=== PATIENT | female | born 1935 | race Caucasian/White ===

== ENCOUNTER 2017-06-03 15:06 | Day surgery (SDC) | payer MEDICARE, SELFPAY ==
[2017-06-03 15:16] VITALS: BP 141/69; PULSE 67; RESP 18; TEMP 36.4; O2SAT 97
[2017-06-03 15:33] VITALS: BP 145/73; PULSE 75; RESP 20
[2017-06-03 15:35] VITALS: BP 133/91; PULSE 71; RESP 20; O2SAT 97
--- NOTE | 2017-06-03 15:42 | HMH.PMPROC ---
- Procedure Date: 06/03/17 Time: 15:42 Anesthesiologist:: Chalo Simms CRNA Complications:: None Pre-procedure Diagnosis:: Degenerative disc disease lumbar spine multiple levels. Lumbar postlaminectomy syndrome Post-procedure Diagnosis:: Same Indications for Procedure:: Very pleasant 82-year-old white female that returns her clinic today for intrathecal pain pump refill. Patient's pump contains Prialt 25 mg/mL. She is currently running at 1.7 mg per day. She does complain of right hip pain that she describes as constant, sharp, stabbing. Upon examination she has extreme point tenderness over the right SI joint. We discussed the right SI joint injection. She wishes to proceed. Procedure Details:: Details of the procedure were explained to the patient. The patient was taken to the procedure room placed in the sitting position. The area over the pump was cleaned using chlorhexidine as a cleansing solution. The pump was accessed with ease using a 25-gauge needle from the refill kit. 15 mL of solution was withdrawn from the pump discarded appropriately. The pump was then filled with 20 cc of preop 25 mg/mL. The pump was interrogated. The rate was continued at 1.7 mg per day Plan and Disposition:: Patient was reevaluated 10 minutes post procedure. She is doing very well. She will return to see us in the pain clinic for further evaluation. Also, we will schedule her for right SI joint injection.
[2017-06-03 16:30] VITALS: BP 108/66; PULSE 63; RESP 18; TEMP 36.6; O2SAT 97
== END 2017-06-03 16:32 | disposition home or self-care (01) ==
LOC: SC.PAINP 15:08
PROVIDERS: Family Provider Internal Medicine Adolescent Medicine; PCP Internal Medicine Adolescent Medicine; Visit Provider Nurse Anesthetist, Certified Registered
DX: M51.36 Other intervertebral disc degeneration, lumbar region (principal); M96.1 Postlaminectomy syndrome, not elsewhere classified
CPT/HCPCS: 95991

== ENCOUNTER 2017-08-20 14:19 | Day surgery (SDC) | payer MEDICARE, SELFPAY ==
[2017-08-20 15:00] VITALS: BP 141/60; PULSE 60; RESP 18; TEMP 36.6; O2SAT 98; BMI 33.3
--- NOTE | 2017-08-20 15:29 | HMH.PMPROC ---
- Procedure Date: 08/20/17 Time: 15:29 Anesthesiologist:: Everardo Foster MD Complications:: None Pre-procedure Diagnosis:: Degenerative disc disease of lumbar spine multiple levels with postlaminectomy syndrome of lumbar spine Post-procedure Diagnosis:: Same Indications for Procedure:: This patient is a pleasant 82-year-old white female who we are treating for low back pain with lumbar radiculopathy symptoms. She has an intrathecal ziconotide pain pump in place. She is currently running at 1.7 mcg per day. She is doing well with her intrathecal pain pump. We will do a pump refill today. She does have an antalgic gait. Motor strength of the lower extremities is 5/5. There is no gross sensory deficit. Procedure Details:: Pain pump refill informed consent was obtained and the risks and benefits of the procedure was explained to the patient. The patient was taken to the procedure room. The pump was interrogated. The area over the pump was prepped using ChloraPrep. The pump was accessed with a 22-gauge needle. Approximately 14 mL's of the intrathecal solution was withdrawn and discarded. The pump was then refilled with 20 mL's of intrathecal ziconotide 25 mcg/mL. The pump was interrogated and the infusion was continued at 1.7 mcg per day. The patient tolerated the procedure well with no complication. Plan and Disposition:: Follow-up the patient at her next pump refill.
[2017-08-20 15:32] VITALS: BP 158/77; PULSE 63; RESP 18; O2SAT 94
[2017-08-20 15:33] VITALS: BP 183/80; PULSE 60; RESP 20; O2SAT 95
[2017-08-20 16:49] VITALS: BP 146/70; PULSE 63; RESP 18; O2SAT 95
[2017-08-20 19:56] LABS: Amphetamine/Metha Screen,Urine Negative ng/mL (<1000); Barbiturates Screen,Urine Negative ng/mL (<200); Benzodiazepines Screen,Urine Negative ng/mL (200); Cannabinoid Screen,Urine Negative ng/mL (<50); Cocaine Screen,Urine Negative ng/g (<300); Methadone Screen,Urine Negative ng/mL (<300); Opiate Screen,Urine Negative ng/mL (<300); Phencyclidine Screen,Urine Negative ng/mL (<25)
[2017-08-28 13:24] LABS: Opiates NEGATIVE
== END 2017-08-20 15:39 | disposition home or self-care (01) ==
LOC: SC.PAINP 14:20
PROVIDERS: Family Provider Internal Medicine Adolescent Medicine; PCP Internal Medicine Adolescent Medicine; Visit Provider Anesthesiology
DX: M51.36 Other intervertebral disc degeneration, lumbar region (principal); M96.1 Postlaminectomy syndrome, not elsewhere classified
CPT/HCPCS: 80305; 80356; 80361; 80365; 95991; G0480

== ENCOUNTER → 2018-10-08 12:31 | Outpatient (CLI) | payer MEDICARE, SELFPAY ==
[2018-10-08 13:40] LABS: Basophils % 0.4 % (0.1-2.0); Eosinophils # 0.4 K/mm3 (0.0-0.4); Eosinophils % 4.2 % (0.1-12.0); Hematocrit 32.4 % (37.0-47.0); Hemoglobin 11.2 g/dL (12.2-16.2); Lymphocytes # 1.3 K/mm3 (0.7-4.5); Lymphocytes % 14.1 % (10-50); Mean Corpuscular HGB Conc 34.5 g/dL (31.8-35.4); Mean Corpuscular Hemoglobin 32.3 pg (27.0-31.2); Mean Corpuscular Volume 93.4 fl (81-99); Mean Platelet Volume 7.9 fl (7.4-10.4); Monocytes # 0.5 K/mm3 (0.1-1.0); Monocytes % 5.4 % (1.7-9.3); Neutrophils # 6.7 K/mm3 (1.8-7.8); Neutrophils % 75.8 % (37.0-80.0); Platelet Count 303 K/mm3 (142-424); Red Blood Count 3.47 M/mm3 (4.20-5.40); Red Cell Distribution Width 13.1 % (11.5-17.5); White Blood Count 8.8 K/mm3 (4.8-10.8)
== END ==
PROVIDERS: Visit Provider Nurse Practitioner Family
DX: K92.0 Hematemesis (principal)
CPT/HCPCS: 85025

== ENCOUNTER → 2018-12-07 13:51 | Outpatient (POV) | payer MEDICARE, SELFPAY ==
[2018-12-07 13:57] VITALS: BP 132/66; PULSE 72; RESP 18; O2SAT 99; BMI 36.0
--- NOTE | 2018-12-07 14:36 | HMH.PAINSOAP ---
[facility] Pain Management SOAP Note Subjective:: Patient is a pleasant 83-year-old white female who presents today for follow-up. Patient has a intrathecal pain pump. Patient receives intrathecal home infusion. She rates her pain a 0 out of 10 today. We are treating her for low back pain with lumbar radiculopathy symptoms secondary to postlaminectomy syndrome. Patient says that she is not having any side effects to her medication. [facility] #[id number] has been reviewed and is appropriate. Review of Systems General: No recent weight changes, no fever, no sleep disturbances Respiratory: No cough, no shortness of air, no recurring pulmonary infections Cardiovascular/peripheral vascular: No chest pain, no palpitations, no edema, no shortness of breath Gastrointestinal: No new onset incontinence, normal bowel movements reported Genitourinary: No new onset incontinence Musculoskeletal: Back pain Psychiatric: Normal mood/affect Neurological: [Denies weakness in extremities], [denies balance issues] Objective:: Physical exam General: Alert and oriented x3, no acute distress, pleasant and cooperative, Lungs: Respirations even and unlabored, symmetrical chest expansion Eyes: PERRL Musculoskeletal: Flexion and extension of lumbar spine somewhat guarded secondary to pain, deep tendon reflexes normal, strength in upper and lower extremities [5/5], unable to assess gait secondary to wheelchair-bound Neurological: Speech clear, physician asst equal, no gross sensory deficit Assessment:: Degenerative disc disease lumbar spine with lumbar radiculopathy and postlaminectomy syndrome Plan:: Patient is doing well with her pump. She is not having any complaints. She also is not having any side effects to the medication. She will continue with her home infusion therapy. We will gradual the patient follow-up in 6 months to reassess her symptoms at that time. She is been instructed to call the office if she has any concerns prior to her next appointment. Dr. Foster has reviewed this note and agrees with this plan of care. This note was dictated using voice recognition software and make contain errors or omissions.
--- NOTE | 2018-12-07 14:39 | P.CONS_ITS ---
[facility] Pain Management SOAP Note Subjective:: Patient is a pleasant 83-year-old white female who presents today for follow-up. Patient has a intrathecal pain pump. Patient receives intrathecal home infusion. She rates her pain a 0 out of 10 today. We are treating her for low back pain with lumbar radiculopathy symptoms secondary to postlaminectomy syndrome. Patient says that she is not having any side effects to her medication. [facility] #[id number] has been reviewed and is appropriate. Review of Systems General: No recent weight changes, no fever, no sleep disturbances Respiratory: No cough, no shortness of air, no recurring pulmonary infections Cardiovascular/peripheral vascular: No chest pain, no palpitations, no edema, no shortness of breath Gastrointestinal: No new onset incontinence, normal bowel movements reported Genitourinary: No new onset incontinence Musculoskeletal: Back pain Psychiatric: Normal mood/affect Neurological: [Denies weakness in extremities], [denies balance issues] Objective:: Physical exam General: Alert and oriented x3, no acute distress, pleasant and cooperative, Lungs: Respirations even and unlabored, symmetrical chest expansion Eyes: PERRL Musculoskeletal: Flexion and extension of lumbar spine somewhat guarded secondary to pain, deep tendon reflexes normal, strength in upper and lower extremities [5/5], unable to assess gait secondary to wheelchair-bound Neurological: Speech clear, mat worker equal, no gross sensory deficit Assessment:: Degenerative disc disease lumbar spine with lumbar radiculopathy and postlaminectomy syndrome Plan:: Patient is doing well with her pump. She is not having any complaints. She also is not having any side effects to the medication. She will continue with her home infusion therapy. We will gradual the patient follow-up in 6 months to reassess her symptoms at that time. She is been instructed to call the office if she has any concerns prior to her next appointment. Dr. Foster has reviewed this note and agrees with this plan of care. This note was dictated using voice recognition software and make contain errors or omissions.
== END ==
PROVIDERS: PCP Internal Medicine Adolescent Medicine; Visit Provider Clinical Nurse Specialist Family Health
DX: M51.16 Intervertebral disc disorders with radiculopathy, lumbar region (principal); M96.1 Postlaminectomy syndrome, not elsewhere classified
CPT/HCPCS: 99212

== ENCOUNTER → 2019-06-07 12:30 | Outpatient (POV) | payer MEDICARE, SELFPAY ==
--- NOTE | 2019-06-07 13:40 | P.CONS_ITS ---
[facility] Pain Management SOAP Note Subjective:: Patient is a pleasant 84-year-old white female who presents today for 6-month follow-up. She has an intrathecal pain pump with morphine and is doing extremely well she denies side effects. Urine drug screens have been appropriate. [facility] #[id number] reviewed and appropriate. Patient has no pain today. ROS General: no recent weight change, no fever, no sleep disturbances Respiratory: no cough, no shortness of air, no recurring pulmonary infections Cardiovascular/Peripheral Vascular: No chest pain, No palpitations, no edema, no shortness of breath. Gastrointestinal: no new onset incontinence, normal bowel movements reported Genitourinary: no new onset incontinence Musculoskeletal: Back pain Psychiatric: normal mood/ affect Neurological: [denies new onset weakness in extremities], [denies new onset balance issues] Objective:: Physical Exam General: Alert and oriented x3, no acute distress, pleasant and cooperative, [on room air] Lungs: Resps E/U, Symmetrical chest expansion, Eyes: PERRL Musculoskeletal: Flexion and extension of lumbar spine somewhat guarded secondary to pain, deep tendon reflexes normal, strength in upper and lower extremities [5/5], [abnormal gait noted] Neurological: speech clear, senior administrative support equal, no gross sensory deficits Assessment:: Degenerative disc disease lumbar spine with lumbar radiculopathy and postlaminectomy syndrome Plan:: We will see the patient back in 6 months reassess her symptoms at that time she is been instructed to call the office if she has any issues prior to her next appointment. Dr. Foster has reviewed this note and agrees with this plan of care. This note was dictated using voice recognition software and may contain errors or omissions [facility] History I have reviewed the patient's past medical history: Yes Medical History: Reports:: Coronary Artery Disease, Diabetes Mellitus Type 2, Hyperlipidemia, Hypertension Denies:: Cancer, Diabetes Mellitus Type 1, MRSA, Seizures *Have you ever received a pneumonia vaccine?: No *Have you received a flu vaccine this season?: No Other Medical History: Reports: Anemia, Arthritis, Cataracts, Sinus Problems. Denies: Blood Transfusion Reaction Laterality Cases: Bilateral: Tonsillectomy Other Surgeries: Yes: Appendectomy, Hysterectomy-Total Amputation: No Fractures: No - *Social History Smoking Status: Never smoker Alcohol Intake: never Alcohol Intake Frequency:: holidays/special occasions only *Occupational Status:: other Housing: house Household Members: spouse *Travel in the last 8 weeks: None Family Hx:: Unable to obtain
[2019-06-07 14:05] VITALS: BP 140/89; PULSE 85; RESP 18; O2SAT 99; BMI 29.1
== END ==
PROVIDERS: PCP Nurse Practitioner Family; Visit Provider Clinical Nurse Specialist Family Health
DX: M51.16 Intervertebral disc disorders with radiculopathy, lumbar region (principal); M96.1 Postlaminectomy syndrome, not elsewhere classified; I25.10 Atherosclerotic heart disease of native coronary artery without angina pectoris; E11.9 Type 2 diabetes mellitus without complications; E78.5 Hyperlipidemia, unspecified; I10 Essential (primary) hypertension; Z90.49 Acquired absence of other specified parts of digestive tract; Z90.710 Acquired absence of both cervix and uterus
CPT/HCPCS: 99212

== ENCOUNTER 2019-09-02 13:02 | Observation (INO) | payer MEDICARE, SELFPAY ==
[2019-09-02 13:03] VITALS: BP 147/46; PULSE 60; RESP 19; TEMP 36.2; O2SAT 96; BMI 30.7
--- NOTE | 2019-09-02 13:11 | CT_ITS ---
PROCEDURE: CT HEAD/BRAIN WO CON CLINICAL INDICATION: altered mental status Altered mental status, confusion, disorientation, altered level of consciousness COMPARISON: No exams were available for comparison TECHNIQUE: Axial images obtained. All CT scans at the facility use one or more dose reduction, viz: automated exposure control, ma/kV adjustment per patient size (including targeted exams where dose is matched to indication, i.e. head), or iterative reconstruction technique. FINDINGS: No midline shift, mass effect, intracranial hemorrhage, hydrocephalus, or extra-axial fluid collection is evident. There is atrophy with ventriculomegaly. Periventricular ischemic gliotic changes are noted. Ventriculomegaly appears slightly out of context to the degree of atrophy. Normal pressure hydrocephalus is a consideration. The calvarium has an unremarkable appearance. There is mild opacification of the mastoid air cells inferiorly on both sides no sinus air-fluid level. IMPRESSION: Atrophy with ventriculomegaly which appears slightly out of context to the degree of atrophy raising the suspicion normal pressure hydrocephalus. Please correlate with clinical parameters. Small bilateral mastoid effusions Dictated by: Gaudencio Hoffmann MD 09/02/2019 14:29 Electronically signed by Gaudencio Hoffmann MD in [place] 09/02/2019 14:29
[2019-09-02 13:26] LABS: Basophils # 0.1 K/mm3 (0-0.2); Basophils % 0.5 % (0.1-2.0); Eosinophils # 0.4 K/mm3 (0.0-0.4); Eosinophils % 3.3 % (0.1-12.0); Hematocrit 36.7 % (37.0-47.0); Hemoglobin 12.1 g/dL (12.2-16.2); Lymphocytes % 9.3 % (10-50); Mean Corpuscular Hemoglobin 31.7 pg (27.0-31.2); Mean Corpuscular Volume 96.1 fl (81-99); Mean Platelet Volume 8.7 fl (7.4-10.4); Monocytes # 0.5 K/mm3 (0.1-1.0); Monocytes % 4.6 % (1.7-9.3); Neutrophils % 82.3 % (37.0-80.0); Platelet Count 257 K/mm3 (142-424); Red Blood Count 3.82 M/mm3 (4.20-5.40); Red Cell Distribution Width 13.7 % (11.5-17.5); White Blood Count 10.9 K/mm3 (4.8-10.8)
[2019-09-02 13:29] LABS: Chloride 104 mmol/L (98-107); Potassium 3.7 mmoL/L (3.5-5.1); Sodium 137 mmol/L (136-145)
[2019-09-02 13:31] LABS: Alanine Aminotransferase 10 U/L (12-78); Aspartate Amino Transferase 20 U/L (14-36); Blood Urea Nitrogen 12 mg/dl (7-17); Creatinine Clearance Estimated 52 mL/min (50-200); Estimated Glomerular Filt Rate 47 ml/min (>60); GFR (African American) 57 ML/MIN (>60)
[2019-09-02 13:32] LABS: Albumin Level 3.4 g/dl (3.5-5.0); Albumin/Globulin Ratio 1.2 (1.1-1.8); Alkaline Phosphatase 70 U/L (38-126); Anion Gap 7.7 mEq/L (5-15); Bilirubin,Total 0.6 mg/dl (0.2-1.3); Carbon Dioxide 29 mmol/L (22.0-30.0); Globulin 2.9 g/dL (1.3-3.2); Glucose 141 mg/dl (74-100); Total Protein,Serum 6.3 g/dl (6.3-8.2)
--- NOTE | 2019-09-02 13:39 | HMH.EDGENADL ---
ED Disposition Clinical Impression: Cerebral ventriculomegaly, Confusion UTI (urinary tract infection) Qualifiers: Urinary tract infection type: acute cystitis Hematuria presence: with hematuria Qualified Code(s): N30.01 - Acute cystitis with hematuria Disposition: Admitted as Observation Condition on Discharge: Fair Referrals: Bobby Conley MD [Primary Care Provider] - - Critical Care Critical Care Time: No Attestation: On 09/02/19, the high probability of a clinically significant, sudden or life threatening deterioration of the following system(s) required my full and direct attention, intervention and personal management. The time I documented below is in addition to time spent performing reported procedures but includes the following listed in this critical care notation. Medical Decision Making - Shiv Inquiry Pt receiving controlled substance: No Vital Signs: 09/02/19 13:03 09/02/19 15:33 Temperature 97.1 F L Temperature Source Oral Pulse Rate [Radial] 60 68 Respiratory Rate 19 20 Blood Pressure [Right Arm] 147/46 H 155/70 H Blood Pressure Mean [Right Arm] 79 98 Blood Pressure Source [Right Arm] Automatic Cuff Automatic Cuff Blood Pressure Position [Right Arm] Sitting Sitting 02 Sat by Pulse Oximetry 96 98 Oxygen Delivery Method Room Air Room Air - Lab Data Lab Results 09/02/19 13:15: WBC 10.9 H, RBC 3.82 L, Hgb 12.1 L, Hct 36.7 L, MCV 96.1, MCH 31.7 H, MCHC 33.0, RDW 13.7, Plt Count 257, MPV 8.7, Neut % (Auto) 82.3 H, Lymph % (Auto) 9.3 L, Wetzel % (Auto) 4.6, Eos % (Auto) 3.3, Baso % (Auto) 0.5, Neut # (Auto) 9.0 H, Lymph # (Auto) 1.0, Wetzel # (Auto) 0.5, Eos # (Auto) 0.4, Baso # (Auto) 0.1 09/02/19 13:15: Sodium 137, Potassium 3.7, Chloride 104, Carbon Dioxide 29, Anion Gap 7.7, BUN 12, Creatinine 1.10 H, Estimated Creat Clear 52, Estimated GFR 47 L, Est GFR ( Amer) 57 L, Glucose 141 H, Calcium 9.0, Total Bilirubin 0.6, AST 20, ALT 10 L, Alkaline Phosphatase 70, Troponin I 0.02, Total Protein 6.3, Albumin 3.4 L, Globulin 2.9, Albumin/Globulin Ratio 1.2 09/02/19 14:00: Urine Color Yellow, Urine Appearance Turbid, Urine pH 5.5, Ur Specific [place] >= 1.030, Urine Protein 2+, Urine Glucose (UA) Negative, Urine Ketones 1+, Urine Blood 2+, Urine Nitrate Positive, Urine Bilirubin Negative, Urine Urobilinogen 0.2, Ur Leukocyte Esterase 2+ A, Urine RBC 20-50, Urine WBC Tntc, Ur Squamous Epith Cells 10-20, Amorphous Sediment 2+, Urine Bacteria 2+ Result diagrams: 09/02/19 13:15 09/02/19 13:15 Orders (Tests/Meds): ED MEDICATIONS Generic Name Dose Route Start Last Admin Trade Name Freq PRN Reason Stop Dose Admin Ceftriaxone Sodium 1 gm/ 50 mls @ 100 mls/hr 09/02/19 14:30 09/02/19 14:35 Sodium Chloride IV 09/16/19 14:29 100 mls/hr Q24H SHYAM Administration Protocol Discontinued Medications Generic Name Dose Route Start Last Admin Trade Name Freq PRN Reason Stop Dose Admin Sodium Chloride 500 ml 09/02/19 16:25 09/02/19 16:31 Sod Chlor 0.9% 1000ml Bag IV 09/02/19 16:26 500 ml BOLUS ONE Administration ORDERS Category Date Time Status Thyroid Panel Stat Lab 09/02/19 13:15 Received Troponin I Q3H Lab 09/02/19 16:30 Ordered Troponin I Q3H Lab 09/02/19 19:30 Ordered Urine Culture Stat Micro 09/02/19 14:00 Received - Radiology Data #1 Image(s): Chest, Pelvis, Tib/Fib Image Reviewed: Yes I reviewed the patient's radiology image Tib-fib: No acute fracture or dislocation Pelvis: No acute fracture or dislocation. Chest: Blunting left costophrenic angle, otherwise negative - CT Data CT Scan: Head Time Received: 14:[address] Reviewed: Yes: I have viewed the radiologist's interpretation Findings Narrative: PROCEDURE: CT HEAD/BRAIN WO CON CLINICAL INDICATION: altered mental status Altered mental status, confusion, disorientation, altered level of consciousness COMPARISON: No exams were available for comparison TECHNIQUE: Axial i
[2019-09-02 13:51] LABS: Troponin I 0.02 ng/ml (0.00-0.034)
--- NOTE | 2019-09-02 13:51 | XR_ITS ---
PROCEDURE: XR CHEST AP CLINICAL HISTORY: weakness, fall, pain, trauma protocol COMPARISON: No exams were available for comparison FINDINGS: Borderline cardiomegaly without failure. There is minimal blunting of the left CP angle. There is mild biapical pleural thickening/calcification. No lobar consolidation or collapse. No acute bony abnormalities. IMPRESSION: Cardiomegaly with small left effusion Dictated by: Gaudencio Hoffmann MD 09/02/2019 15:15 Electronically signed by Gaudencio Hoffmann MD in [place] 09/02/2019 15:15
--- NOTE | 2019-09-02 13:51 | XR_ITS ---
PROCEDURE: XR TIBIA FIBULA RT 2V CLINICAL INDICATION: fall posttraumatic pain and bruising COMPARISON: No exams were available for comparison FINDINGS: No fracture, dislocation, lytic change, or blastic change evident. No significant degenerative change IMPRESSION: No acute findings. Dictated by: Gaudencio Hoffmann MD 09/02/2019 15:43 Electronically signed by Gaudencio Hoffmann MD in [place] 09/02/2019 15:43
--- NOTE | 2019-09-02 13:52 | XR_ITS ---
PROCEDURE: XR PELVIS 1-2V CLINICAL INDICATION: fall Posttraumatic pain COMPARISON: No exams were available for comparison TECHNIQUE: XR Pelvis AP View FINDINGS: There is diffuse osteopenia. No obvious fracture or dislocation. Perez catheter is present. There is lumbar scoliosis convex left with inter pedicular screws at the lumbosacral junction and a pain pump present with the reservoir in the left lower quadrant. There mild osteoarthritic changes of the hips IMPRESSION: No acute findings. Dictated by: Gaudencio Hoffmann MD 09/02/2019 15:45 Electronically signed by Gaudencio Hoffmann MD in [place] 09/02/2019 15:45
[2019-09-02 14:01] LABS: Microscopic, Urine URINE MICROSCOPIC (MICROSCOPIC)
[2019-09-02 14:06] LABS: Appearance,Urine TURBID (Clear); Blood, Urine 2+ (Negative); Color,Urine YELLOW (Yellow); Glucose,Urine (UA) Negative (Negative); Ketones,Urine 1+ (Negative); Leukocyte Esterase,Urine 2+ (Negative); Nitrate,Urine POSITIVE (Negative); PH,Urine 5.5 (5.0-8.5); Protein,Urine 2+ (Negative); Specific Gravity, Urine >= 1.030 (1.005-1.030); Urobilinogen,Urine 0.2 EU/dl (0.2)
[2019-09-02 14:08] LABS: Bilirubin,Urine Negative (Negative)
[2019-09-02 14:12] LABS: WBC,Urine TNTC #/hpf (0-3)
[2019-09-02 14:13] LABS: Amorphous Sediment,Urine 2+ /lpf; Bacteria,Urine 2+ /lpf; RBC,Urine 20-50 #/hpf (0-3)
[2019-09-02 15:33] VITALS: BP 155/70; PULSE 68; RESP 20; O2SAT 98
--- NOTE | 2019-09-02 16:24 | PC.NURSE ---
SPEAKING TO DR OLIVARES
[2019-09-02 16:45] LABS: Free Thyroxine Index 5.1 ug/dL (5.93-13.13); T4 (Thyroxine) 12.1 ug/dl (5.53-11.0); Triiodothryronine (T3) Uptake 42 % (23.5-40.5)
[2019-09-02 16:58] LABS: Thyroid Stimulating Hormone 3.47 uIU/mL (0.465-4.68)
[2019-09-02 17:05] VITALS: BP 155/70; PULSE 68; RESP 20; TEMP 36.2; O2SAT 98
[2019-09-02 17:08] LABS: Troponin I 0.01 ng/ml (0.00-0.034)
--- NOTE | 2019-09-02 17:08 | PC.NURSE ---
Report called to ArelisRN
[2019-09-02 17:26] VITALS: BP 154/49; PULSE 61; RESP 16; TEMP 36.7; O2SAT 96; BMI 25.7
--- NOTE | 2019-09-02 17:28 | P.CONPHA_ITS ---
[facility] Pharmacy VTE Monitoring - Patient Demographics Admission date: 09/02/19 Report Date: 09/02/19 Time: 17:28 Allergies/Adverse Reactions: Patient Allergies latex [LATEX] Allergy (Unknown, Verified 04/28/18 13:01) I-ITCHING Sulfa (Sulfonamide Antibiotics) [SULFA (SULFONAMIDE ANTIBIOTICS)] Allergy (Unknown, Verified 04/28/18 13:01) I-ITCHING Height: 1.63 m Weight: 68.152 kg Patient Problems: Current Active Problems UTI (urinary tract infection) (Acute) Cerebral ventriculomegaly (Acute) Confusion (Acute) - VTE Risk Labs: VTE Related Lab Results Hgb 12.1 g/dL (12.2-16.2) L 09/02/19 13:15 Hct 36.7 % (37.0-47.0) L 09/02/19 13:15 Plt Count 257 K/mm3 (142-424) 09/02/19 13:15 BUN 12 mg/dl (7-17) 09/02/19 13:15 Creatinine 1.10 mg/dl (0.52-1.04) H 09/02/19 13:15 Estimated Creat Clear 52 mL/min (50-200) 09/02/19 13:15 VTE Score: 4 VTE Risk Level: Low Risk - Prophylaxis VTE Prophylaxis Ordered?: Yes Types of VTE Prophylaxis: TEDS Knee High Location of Applied Device: Bilateral Lower Extremeties
[2019-09-02 17:30] VITALS: O2SAT 96
[2019-09-02 20:00] VITALS: BP 150/58; PULSE 62; RESP 16; TEMP 36.8; O2SAT 95
--- NOTE | 2019-09-02 21:13 | HMH.HP ---
*Admission Date: 09/02/19 <Cindy Guidry - 09/02/19 22:13> *Chief complaint: Confusion, weakness <Cindy Guidry - 09/02/19 22:13> *History of present illness: Rounded after nurse practitioner on day of admission. Agree with exam findings and care plan as documented. <Mike Horner - 09/05/19 07:48> 84 yr old female admitted from ED after arriving via ambulance from her home. Family called 911 after she became acute confused with word salad . Episode began with large loose bowel movement, nausea, and weakness above baseline requiring 2-person assist off of the toilet. Once she was returned to her chair she began asking unusual questions, was confused about the date and words were non-sensible and EMS was contacted. ED workup revealed mild leukocytosis, dehydration and probable acute urinary tract infection. CT imaging revealed atrophy with venticulomegaly but no acute changes. reports increasing confusion over the past several weeks with episodes of confusion that would then clear. Several days ago she was attempting to fill out a card to send to someone and repeatedly wrote the word this instead of sensible conversation. Always requires assist x 1 person and use of rollator walker but has had increasing lower extremity weakness for the past couple of weeks. Decision was make to admit for IV antibiotics, hydration and monitoring as well as evaluation for long-term care placement. <Cindy Guidry - 09/02/19 22:13> [facility] History I have reviewed the patient's past medical history: Yes <Cindy Guidry - 09/02/19 22:13> Medical History: Reports:: Coronary Artery Disease, Diabetes Mellitus Type 2, Gastroesophageal Reflux Disease(GERD), Hyperlipidemia, Hypertension Denies:: Cancer, Diabetes Mellitus Type 1, MRSA, Seizures <Cindy Guidry - 09/02/19 22:13> *Have you ever received a pneumonia vaccine?: Yes <Cindy Guidry 09/02/19 22:13> *Have you received a flu vaccine this season?: Yes <Cindy Guidry 09/02/19 22:13> Other Medical History: Reports: Anemia, Arthritis, Cataracts, Fibromyalgia. Denies: Blood Transfusion Reaction <Cindy Guidry 09/02/19 22:13> Laterality Cases: Bilateral: Tonsillectomy <Brea,Cindy L 09/02/19 22:13> Other Surgeries: Yes: Appendectomy, Cholecystectomy, EGD, Hysterectomy-Total, Other (lumbar fusion, synovial cyst removed from c-spine, implanted pain pump) [facility] 22:13> Amputation: No <[facility] 09/02/19 22:13> [facility]ractures: No [facility]:13> - *Social History Educational Level: Completed College <BreaCedricCindy L 09/02/19 22:13> Smoking Status: Never smoker [facility] 09/02/19 22:13> Alcohol Intake: never <BreaCedricCindy L 09/02/19 22:13> Alcohol Intake Frequency:: holidays/special occasions only <[facility] 09/02/19 22:13> Substance Use Type: denies use <[facility] 09/02/19 22:13> *Occupational Status:: retired <[facility] 09/02/19 22:13> Housing: house <BreaCedricCindy L 09/02/19 22:13> Household Members: spouse <[facility] 09/02/19 22:13> *Travel in the last 8 weeks: None <BreaCedricCindy L 09/02/19 22:13> Family Hx:: Unable to obtain <[facility] 09/02/19 22:13> Review of Systems - Review of Systems Review of systems:: pertinent systems reviewed and negative unless documented below <BreaCedricCindy L 09/02/19 22:13> - Constitutional Reports fatigue, Reports malaise, Reports weakness, Denies fever(s) <[facility] 09/02/19 22:13> - *Cardiovascular Reports leg swelling (chronic), Denies chest pain, Denies shortness of breath <BreaCedricCindy L 09/02/19 22:13> - *Respiratory Denies cough <[facility] 09/02/19 22:13> - *Gastrointestinal Reports loose stools, Denies abdominal pain, Denies change in bowel habits, Denies difficulty swallowing, Denies vomiting <Cindy Guidry - 09/02/19 22:13> - *Musculoskele
--- NOTE | 2019-09-03 00:13 | PC.NURSE ---
First assessment finding pt awake upon room entry, Now who are you? After introduction, pt remembered me as I have provided care for her before. Denied pain, however c/o being cold, bruising noted as given in bedside report with Tong Erwin RN. Pt alert to all questions asked; person, place, name, date, place, month, year. Carvedilol given, placed 2 warm blankets for comfort, bed safety activated, call light w/i reach, pt reported ready to get some rest, monitoring continues.
[2019-09-03 04:00] VITALS: BP 160/80; PULSE 64; RESP 16; TEMP 36.6; O2SAT 96
[2019-09-03 04:43] VITALS: BMI 26.1
[2019-09-03 06:32] LABS: Basophils # 0.1 K/mm3 (0-0.2); Basophils % 0.5 % (0.1-2.0); Eosinophils # 0.4 K/mm3 (0.0-0.4); Hematocrit 34.7 % (37.0-47.0); Hemoglobin 11.1 g/dL (12.2-16.2); Lymphocytes # 1.6 K/mm3 (0.7-4.5); Mean Corpuscular HGB Conc 32.1 g/dL (31.8-35.4); Mean Corpuscular Hemoglobin 30.9 pg (27.0-31.2); Mean Corpuscular Volume 96.2 fl (81-99); Mean Platelet Volume 8.7 fl (7.4-10.4); Monocytes # 0.6 K/mm3 (0.1-1.0); Monocytes % 6.3 % (1.7-9.3); Neutrophils # 6.9 K/mm3 (1.8-7.8); Neutrophils % 72.2 % (37.0-80.0); Platelet Count 227 K/mm3 (142-424); Red Cell Distribution Width 13.5 % (11.5-17.5); White Blood Count 9.6 K/mm3 (4.8-10.8)
[2019-09-03 06:35] LABS: Chloride 107 mmol/L (98-107); Sodium 140 mmol/L (136-145)
[2019-09-03 06:36] LABS: Potassium 3.4 mmoL/L (3.5-5.1)
[2019-09-03 06:38] LABS: Blood Urea Nitrogen 10 mg/dl (7-17); Creatinine Clearance Estimated 46 mL/min (50-200); Estimated Glomerular Filt Rate 60 ml/min (>60); GFR (African American) 72 ML/MIN (>60)
[2019-09-03 06:39] LABS: Anion Gap 10.4 mEq/L (5-15); Calcium 8.3 mg/dl (8.4-10.2); Carbon Dioxide 26 mmol/L (22.0-30.0); Glucose 89 mg/dl (74-100)
--- NOTE | 2019-09-03 07:32 | HMH.ACPN2 ---
Internal Medicine - PN: Subj *Date: 09/03/19 *Time: 07:32 Interval history: Patient is alert, pleasant, talkative, memory remains significantly impaired Exam Vital signs and Labs for Last 24 Hours: Temp Pulse Resp BP Pulse Ox 97.9 F 64 16 160/80 H 96 09/03/19 04:00 09/03/19 04:00 09/03/19 04:00 09/03/19 04:00 09/03/19 04:00 Laboratory Results - last 24 hr 09/02/19 13:15: WBC 10.9 H, RBC 3.82 L, Hgb 12.1 L, Hct 36.7 L, MCV 96.1, MCH 31.7 H, MCHC 33.0, RDW 13.7, Plt Count 257, MPV 8.7, Neut % (Auto) 82.3 H, Lymph % (Auto) 9.3 L, [place] % (Auto) 4.6, Eos % (Auto) 3.3, Baso % (Auto) 0.5, Neut # (Auto) 9.0 H, Lymph # (Auto) 1.0, [place] # (Auto) 0.5, Eos # (Auto) 0.4, Baso # (Auto) 0.1 09/02/19 13:15: Sodium 137, Potassium 3.7, Chloride 104, Carbon Dioxide 29, Anion Gap 7.7, BUN 12, Creatinine 1.10 H, Estimated Creat Clear 52, Estimated GFR 47 L, Est GFR ( Amer) 57 L, Glucose 141 H, Calcium 9.0, Total Bilirubin 0.6, AST 20, ALT 10 L, Alkaline Phosphatase 70, Troponin I 0.02, Total Protein 6.3, Albumin 3.4 L, Globulin 2.9, Albumin/Globulin Ratio 1.2 09/02/19 13:15: TSH 3.47, Free T4 Index 5.1 L, Thyroxine (T4) 12.1 H, T3 Uptake 42 H 09/02/19 14:00: Urine Color Yellow, Urine Appearance Turbid, Urine pH 5.5, Ur Specific [place] >= 1.030, Urine Protein 2+, Urine Glucose (UA) Negative, Urine Ketones 1+, Urine Blood 2+, Urine Nitrate Positive, Urine Bilirubin Negative, Urine Urobilinogen 0.2, Ur Leukocyte Esterase 2+ A, Urine RBC 20-50, Urine WBC Tntc, Ur Squamous Epith Cells 10-20, Amorphous Sediment 2+, Urine Bacteria 2+ 09/02/19 16:33: Troponin I 0.01 09/03/19 06:18: WBC 9.6, RBC 3.60 L, Hgb 11.1 L, Hct 34.7 L, MCV 96.2, MCH 30.9, MCHC 32.1, RDW 13.5, Plt Count 227, MPV 8.7, Neut % (Auto) 72.2, Lymph % (Auto) 17.0, [place] % (Auto) 6.3, Eos % (Auto) 4.0, Baso % (Auto) 0.5, Neut # (Auto) 6.9, Lymph # (Auto) 1.6, [place] # (Auto) 0.6, Eos # (Auto) 0.4, Baso # (Auto) 0.1 09/03/19 06:18: Sodium 140, Potassium 3.4 L, Chloride 107, Carbon Dioxide 26, Anion Gap 10.4, BUN 10, Creatinine 0.90, Estimated Creat Clear 46, Estimated GFR 60, Est GFR ( Amer) 72 D, Glucose 89 D, Calcium 8.3 L I & O for Last 24 hours: Intake & Output 08/31/19 09/01/19 09/02/19 09/03/19 11:59 11:59 11:59 11:59 Intake Total 1693 / 1693 Output Total 300 / 300 Balance 1393 / 1393 Weight 153 lb 1 oz Narrative: Pleasant, talkative, oropharynx clear. No JVD. Good air movement. Heart rate regular. Abdomen soft. Leg somewhat tender but baseline edema. Moving all extremities well. 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 Category: Medical Code(s): R54 - Age-related physical debility (3) PACHECO (acute kidney injury) Current visit: Yes Status: Acute Category: Medical Code(s): N17.9 - Acute kidney failure, unspecified (4) Recurrent falls Current visit: Yes Status: Chronic Category: Medical Code(s): R29.6 - Repeated falls (5) Confusion Current visit: Yes Status: Acute Category: Medical Code(s): R41.0 - Disorientation, unspecified (6) Cerebral ventriculomegaly Current visit: Yes Status: Acute Category: Medical Code(s): G93.89 - Other specified disorders of brain (7) Chronic back pain Current visit: Yes Status: Chronic Qualifiers: Back pain location: low back pain Back pain laterality: bilateral Sciatica presence: without sciatica Qualified Code(s): M54.5 - Low back pain; G89.29 - Other chronic pain Category: Medical Code(s): M54.9 - Dorsalgia, unspecified; G89.29 - Other chronic pain (8) HTN (hypertension) Current visit:
[2019-09-03 08:00] VITALS: BP 120/80; PULSE 65; RESP 18; TEMP 36.8; O2SAT 95
[2019-09-03 08:36] VITALS: PULSE 70; RESP 16; O2SAT 95
--- NOTE | 2019-09-03 12:45 | HMH.DCSUM ---
General - General Admission date:: 09/02/19 Discharge date: 09/03/19 HPI HPI: 84 yr old female admitted from ED after arriving via ambulance from her home. Family called 911 after she became acute confused with word salad . Episode began with large loose bowel movement, nausea, and weakness above baseline requiring 2-person assist off of the toilet. Once she was returned to her chair she began asking unusual questions, was confused about the date and words were non-sensible and EMS was contacted. ED workup revealed mild leukocytosis, dehydration and probable acute urinary tract infection. CT imaging revealed atrophy with venticulomegaly but no acute changes. reports increasing confusion over the past several weeks with episodes of confusion that would then clear. Several days ago she was attempting to fill out a card to send to someone and repeatedly wrote the word this instead of sensible conversation. Always requires assist x 1 person and use of rollator walker but has had increasing lower extremity weakness for the past couple of weeks. Decision was make to admit for IV antibiotics, hydration and monitoring as well as evaluation for long-term care placement. Hospital Course Hospital Course: Afebrile throughout admission. WBC decreased to normal range overnight and acute kidney injury improved with IV fluids. Confusion improved but still not as sharp as usual. Urine growing gram negative rods. She was given ceftriaxone IV and will transition to oral cefdinir 300mg PO BID for 7 days pending final culture results. Plan is to transfer to [facility] today where she will complete PO antibiotics and family will decide about desire for therapy evaluations depending on how she does cognitively over the next few weeks. Objective Vital signs: Temp Pulse Resp BP Pulse Ox 98.3 F 70 16 120/80 95 09/03/19 08:00 09/03/19 08:36 09/03/19 08:36 09/03/19 08:00 09/03/19 08:36 no acute distress - *Routine HEENT Exam Head: Present: normocephalic Eye: Present: conjunctivae pink ENT: Present: mucous membranes moist - *Routine Neck Exam Present: supple - *Routine Respiratory Exam Present: CTA bilaterally - *Routine Cardiovascular Exam Present: RRR - *Routine Abdominal Exam Present: soft, normoactive bowel sounds - *Routine Extremities Exam Present: pulses intact, normal capillary refill - *Routine Skin Exam Present: intact, dry, warm - *Routine Neurological Exam Present: alert, oriented X3, moving all extremities Results Labs on day of discharge: Labs from last 24 hours 09/03/19 09/03/19 09/02/19 06:18 06:18 16:33 WBC 9.6 RBC 3.60 L Hgb 11.1 L Hct 34.7 L MCV 96.2 MCH 30.9 MCHC 32.1 RDW 13.5 Plt Count 227 MPV 8.7 Neut % (Auto) 72.2 Lymph % (Auto) 17.0 [place] % (Auto) 6.3 Eos % (Auto) 4.0 Baso % (Auto) 0.5 Neut # (Auto) 6.9 Lymph # (Auto) 1.6 [place] # (Auto) 0.6 Eos # (Auto) 0.4 Baso # (Auto) 0.1 Sodium 140 Potassium 3.4 L Chloride 107 Carbon Dioxide 26 Anion Gap 10.4 BUN 10 Creatinine 0.90 Estimated Creat Clear 46 Estimated GFR 60 Est GFR ( Amer) 72 D Glucose 89 D Calcium 8.3 L Total Bilirubin AST ALT Alkaline Phosphatase Troponin I 0.01 Total Protein Albumin Globulin Albumin/Globulin Ratio TSH Free T4 Index Thyroxine (T4) T3 Uptake Urine Color Urine Appearance Urine pH Ur Specific [place] Urine Protein Urine Glucose (UA) Urine Ketones Urine Blood Urine Nitrate Urine Bilirubin Urine Urobilinogen Ur Leukocyte Esterase Urine RBC Urine WBC Ur Squamous Epith Cells Amorphous Sediment Urine Bacteria 09/02/19 09/02/19 09/02/19 14:00 13:15 13:15 WBC RBC Hgb Hct MCV MCH MCHC RDW Plt Count MPV Neut % (Auto)
--- NOTE | 2019-09-03 13:23 | SW/DCPLANNER ---
SENT INFORMATION TO [facility] PER FAMILY REQUEST FOR AN ICF LEVEL OF CARE... PATIENT ADMITTED INTO THE HOSPITAL WITH ALTERED MENTAL STATUS AND UTI... SHE HAD BEEN AT HOME AND WILL DISCHARGE TO [facility] LATER TODAY.. INFORMATION WAS FAXED TO [facility].. FAMILY WILL BE TRANSPORTING HER OVER THERE....
== END 2019-09-03 14:16 ==
LOC: ER 16:34 → 2ND 16:47
PROVIDERS: Nurse Practitioner Family; Admitting Provider Internal Medicine Adolescent Medicine; Emergency Provider Emergency Medicine; PCP Internal Medicine Adolescent Medicine; Visit Provider Internal Medicine Adolescent Medicine
DX: N39.0 Urinary tract infection, site not specified (principal); B96.1 Klebsiella pneumoniae [K. pneumoniae] as the cause of diseases classified elsewhere; R29.6 Repeated falls; M54.5 Low back pain; I10 Essential (primary) hypertension; R41.0 Disorientation, unspecified; Z79.899 Other long term (current) drug therapy; Z88.2 Allergy status to sulfonamides; Z88.1 Allergy status to other antibiotic agents; Z91.040 Latex allergy status; I25.10 Atherosclerotic heart disease of native coronary artery without angina pectoris; E78.5 Hyperlipidemia, unspecified; E11.9 Type 2 diabetes mellitus without complications; Z90.89 Acquired absence of other organs; Z90.710 Acquired absence of both cervix and uterus; K21.9 Gastro-esophageal reflux disease without esophagitis; D64.9 Anemia, unspecified; M19.90 Unspecified osteoarthritis, unspecified site; E86.0 Dehydration
CPT/HCPCS: 36415; 70450; 71045; 72170; 73590; 80048; 80053; 81001; 84436; 84443; 84479; 84484; 85025; 87086; 87088; 87186; 96365; 96367; 99285; G0378

== ENCOUNTER → 2019-12-10 19:09 | Outpatient (CLI) | payer MEDICARE, SELFPAY ==
[2019-12-10 19:15] LABS: Microscopic, Urine URINE MICROSCOPIC (MICROSCOPIC)
[2019-12-10 19:28] LABS: Appearance,Urine CLOUDY (Clear); Bilirubin,Urine Negative (Negative); Blood, Urine 1+ (Negative); Color,Urine YELLOW (Yellow); Glucose,Urine (UA) Negative (Negative); Ketones,Urine Negative (Negative); Leukocyte Esterase,Urine 2+ (Negative); Nitrate,Urine POSITIVE (Negative); Protein,Urine TRACE (Negative); Urobilinogen,Urine 0.2 EU/dl (0.2)
[2019-12-10 19:33] LABS: Bacteria,Urine 2+ /lpf; WBC,Urine 50-100 #/hpf (0-3)
== END ==
PROVIDERS: Visit Provider Nurse Practitioner Family
DX: N39.0 Urinary tract infection, site not specified (principal)
CPT/HCPCS: 81001; 87086; 87088; 87186

== ENCOUNTER → 2021-04-16 11:03 | Outpatient (POV) | payer MEDICARE, SELFPAY ==
--- NOTE | 2021-04-16 12:10 | HMH.VVPMSO ---
[facility] PM Virtual Visit SOAP Consent for virtual visit:: With the recent concerns about the COVID-19, we are trying to minimize exposure to you by shifting to telehealth appointments whenever possible. It restricts me from seeing you in person, but the trade off is protecting you during this pandemic. Can you see and hear me okay, and do you consent to this option? If not, I would be happy to see if we can reschedule your appointment in the future, when feasible. Has patient consented to this virtual visit?: Yes Subjective:: Patient is a very pleasant 86-year-old white female who is following up today via telehealth medicine for 6-month follow-up. She does have an intrathecal pain pump with morphine and is doing well without side effects. She says that she has 0 pain today. She says she is not taking her as needed medication, as the pump is providing complete pain relief at this time. She rates her pain a 0 out of 10. Overall the patient's doing very well. The patient's drug screen has been managed by [facility]. [facility]ade #[id number] has been reviewed and is appropriate. Drug screen is appropriate.\ Review of Systems General: No recent weight changes, no fever, no sleep disturbances Respiratory: No cough, no shortness of air, no recurring pulmonary infections Cardiovascular/peripheral vascular: No chest pain, no palpitations, no edema, no shortness of breath Gastrointestinal: No new onset incontinence, normal bowel movements reported Genitourinary: No new onset incontinence Musculoskeletal: No pain at this time Psychiatric: [Normal mood/affect] Neurological: [Denies weakness in extremities], [denies balance issues] Objective:: Physical exam General: Alert and oriented x3, pleasant and cooperative Assessment:: Degenerative disc disease lumbar spine with lumbar radiculopathy symptoms Plan:: Patient is doing well overall with her intrathecal pump. We will plan to follow-up with her in 6 months for further evaluation. She can contact the clinic if she has any concerns for next visit Risks and benefits of the medication have been explained in detail to the patient. If side effects do present with the medication, patient has been advised to stop the medication immediately and call the clinic. The patient has been advised to consult with his/her primary care provider and pharmacist regarding drug-drug interaction of medications currently prescribed. Patient has been instructed to contact the clinic with any concerns before the next appointment. Dr. Foster has reviewed this note and agrees with this plan of care. This note was dictated using voice recognition software and make contain errors or omissions. Time In:: 11:15 Time Out:: 11:30 [facility] History Medical History: Reports:: Coronary Artery Disease, Diabetes Mellitus Type 2, Gastroesophageal Reflux Disease(GERD), Hyperlipidemia, Hypertension Denies:: Cancer, Diabetes Mellitus Type 1, MRSA, Seizures *Have you ever received a pneumonia vaccine?: No *Have you received a flu vaccine this season?: No Other Medical History: Reports: Anemia, Arthritis, Cataracts, Fibromyalgia, Sinus Problems. Denies: Blood Transfusion Reaction Laterality Cases: Bilateral: Tonsillectomy Other Surgeries: Yes: Appendectomy, Cholecystectomy, EGD, Hysterectomy-Total, Other (lumbar fusion, synovial cyst removed from c-spine, implanted pain pump) Amputation: No Fractures: No - *Social History Smoking Status: Never smoker Alcohol Intake: never Alcohol Intake Frequency:: holidays/special occasions only Substance Use Type: denies use *Occupational Status:: retired Housing: house Household Members: spouse *Travel in the last 8 weeks: None Family Hx:: Unable to obtain
== END ==
PROVIDERS: Visit Provider Clinical Nurse Specialist Family Health
DX: M51.16 Intervertebral disc disorders with radiculopathy, lumbar region (principal)
CPT/HCPCS: 99212; G0463

== ENCOUNTER → 2022-01-07 10:13 | Outpatient (CLI) | payer MEDICARE, SELFPAY ==
[2022-01-07 11:38] LABS: Basophils % 0.4 % (0.1-2.0); Eosinophils # 0.2 K/mm3 (0.0-0.4); Eosinophils % 2.2 % (0.1-12.0); Hematocrit 34.6 % (37.0-47.0); Hemoglobin 10.7 g/dL (12.2-16.2); Lymphocytes # 1.1 K/mm3 (0.7-4.5); Mean Corpuscular HGB Conc 31.1 g/dL (31.8-35.4); Mean Corpuscular Hemoglobin 34.4 pg (27.0-31.2); Mean Corpuscular Volume 110.6 fl (81-99); Monocytes # 0.4 K/mm3 (0.1-1.0); Monocytes % 4.7 % (1.7-9.3); Neutrophils % 77.6 % (37.0-80.0); Platelet Count 216 K/mm3 (142-424); Red Blood Count 3.13 M/mm3 (4.20-5.40); Red Cell Distribution Width 14.9 % (11.5-17.5); White Blood Count 7.7 K/mm3 (4.8-10.8)
[2022-01-07 12:57] LABS: Anion Gap 4.5 mEq/L (5-15); Blood Urea Nitrogen 17 mg/dl (7-17); Calcium 7.7 mg/dl (8.4-10.2); Carbon Dioxide 29 mmol/L (22.0-30.0); Chloride 109 mmol/L (98-107); Estimated Glomerular Filt Rate 59 ml/min (>60); GFR (African American) 72 ML/MIN (>60); Glucose 125 mg/dl (74-100); Potassium 3.5 mmoL/L (3.5-5.1); Sodium 139 mmol/L (136-145)
== END ==
PROVIDERS: PCP Nurse Practitioner Family; Visit Provider Nurse Practitioner Family
DX: E11.9 Type 2 diabetes mellitus without complications (principal)
CPT/HCPCS: 80048; 85025